=== PATIENT | female | born 1980 | race Caucasian/White ===

== ENCOUNTER 2017-11-28 00:03 | Emergency (ER) | payer BC ==
[~2017-11-28] VITALS: Ht 165.1 cm; Wt 86.4 kg
[2017-11-28 00:08] VITALS: TEMP 98.1
[2017-11-28] MEDS ORDERED: AMOXICILLIN875 MG PO (00:13)
[2017-11-28] MEDS ORDERED: MUCINEX D1 TER PO (00:13)
[2017-11-28] MEDS ORDERED: CODEINE COUGH SYRUP (00:14)
[2017-11-28] MEDS ORDERED: TESSALON P100 MG/CAP PO (00:14)
[2017-11-28 01:52] VITALS: BP 143/93; PULSE 84
== END 2017-11-28 01:54 | disposition home or self-care (01) ==
LOC: COL.ER 00:03
DX: S93.401A Sprain of unspecified ligament of right ankle, initial encounter (principal); X50.0XXA Overexertion from strenuous movement or load, initial encounter

== ENCOUNTER → 2018-08-21 | Outpatient (CLI) | payer BC ==
[~2018-08-21] MED LIST: AMOXICILLIN875 MG PO; CODEINE COUGH SYRUP; MUCINEX D1 TER PO; TESSALON P100 MG/CAP PO
== END ==
LOC: COL.RAD 14:16
DX: M53.3 Sacrococcygeal disorders, not elsewhere classified (principal)